=== PATIENT | female | born 1975 | race Caucasian/White ===

== ENCOUNTER 2016-10-07 08:52 | Outpatient (CLI) | payer OTHER ==
[2016-10-07 09:44] LABS: HEMATOCRIT 26.1 % (36-48); HEMOGLOBIN 7.3 g/dL (12.0-16.0); LYMPHOCYTES # (AUTO) 1.1 K/uL (1.0-5.5); MEAN CORPUSCULAR HEMOGLOBIN 16 pg (27-31); MONOCYTES # (AUTO) 0.3 K/uL (0.0-1.0)
[2016-10-07 10:03] LABS: EOSINOPHILS % (AUTO) 0.5 % (0.0-4.0); LYMPHOCYTES % (AUTO) 24.3 % (20.5-51.5); MEAN CORPUSCULAR HGB CONC 28 % (32-36); MEAN CORPUSCULAR VOLUME 58 fL (79.0-98.0); MONOCYTES % (AUTO) 6.8 % (1.7-9.3); NEUTROPHILS # (AUTO) 3.2 K/uL (1.8-7.7); NEUTROPHILS % (AUTO) 67.4 % (40.0-70.0); PLATELET COUNT (AUTO) 199 K/uL (130-430); RED CELL DISTRIBUTION WIDTH 18.9 % (9.0-15.0); WHITE BLOOD COUNT (AUTO) 4.6 K/uL (4.8-10.8)
[2016-10-07 10:16] LABS: POTASSIUM 3.8 mmol/L (3.5-5.1)
[2016-10-07 10:17] LABS: CALCIUM 8.9 mg/dL (8.4-11.0); CREATININE 0.51 mg/dL (0.55-1.30)
[2016-10-07 10:43] LABS: ALBUMIN 3.9 g/dL (3.4-4.8); THYROID STIMULATING HORMONE 0.97 uIu/mL (0.36-3.74); TOTAL BILIRUBIN 0.4 mg/dL (0.0-1.0); TOTAL PROTEIN, SERUM 8.1 g/dL (6.4-8.3)
[2016-10-07 11:08] LABS: RED BLOOD CELL COUNT(AUTO) 4.46 MIL/uL (4.2-6.2)
== END 2016-10-07 21:26 | disposition home or self-care (01) ==
LOC: SLB 08:52
PROVIDERS: ATTEND General Practice
DX: R59.9 Enlarged lymph nodes, unspecified (principal)
CPT/HCPCS: 36415; 76536-TC; 80053; 80061; 82306; 84443-TC; 85025

== ENCOUNTER 2017-08-03 12:50 | Outpatient (CLI) | payer OTHER ==
[2017-08-03 13:30] LABS: HEMATOCRIT 26.6 % (36-48); HEMOGLOBIN 7.6 g/dL (12.0-16.0); MEAN CORPUSCULAR HEMOGLOBIN 17 pg (27-31); MEAN CORPUSCULAR HGB CONC 29 % (32-36); MEAN CORPUSCULAR VOLUME 58 fL (79.0-98.0); PLATELET COUNT (AUTO) 161 K/uL (130-430); WHITE BLOOD COUNT (AUTO) 6.2 K/uL (4.8-10.8)
[2017-08-03 14:11] LABS: BASOPHILS % (AUTO) 0.6 % (0.0-2.0); EOSINOPHILS % (AUTO) 0.3 % (0.0-4.0); LYMPHOCYTES # (AUTO) 1.2 K/uL (1.0-5.5); LYMPHOCYTES % (AUTO) 19.4 % (20.5-51.5); MONOCYTES % (AUTO) 7.1 % (1.7-9.3); NEUTROPHILS # (AUTO) 4.6 K/uL (1.8-7.7)
[2017-08-03 14:12] LABS: MONOCYTES # (AUTO) 0.4 K/uL (0.0-1.0)
[2017-08-03 14:14] LABS: NEUTROPHILS % (AUTO) 72.6 % (40.0-70.0)
== END 2017-08-03 18:39 | disposition home or self-care (01) ==
LOC: SLB 12:50
PROVIDERS: ATTEND General Practice
DX: K21.9 Gastro-esophageal reflux disease without esophagitis (principal)
CPT/HCPCS: 36415; 85007; 85027; 86677

== ENCOUNTER 2017-08-25 16:30 | Outpatient (CLI) | payer OTHER | END 2017-08-25 18:00 | disposition home or self-care (01) | LOC: SMA 16:30 | PROVIDERS: ATTEND General Practice | DX: Z12.31 Encounter for screening mammogram for malignant neoplasm of breast (principal) | CPT/HCPCS: 77067 ==